=== PATIENT | female | born 1990 | race Caucasian/White ===

== ENCOUNTER 2016-11-21 11:31 | Emergency (ER) | payer OTHER ==
[2016-11-21 12:20] VITALS: BP 115/71
--- NOTE | 2016-11-21 13:11 | UC ---
Skin Complaint HPI - HPI Summary HPI Summary: flu vaccine in left arm yesterday --now concerned because it is red and warm - History of Current Complaint Chief Complaint: UCSkin Time Seen by Provider: 11/21/16 13:01 Stated Complaint: LEFT ARM COMPLAINT Hx Obtained From: Patient Hx Last Menstrual Period: 8 days ago ?: No Onset/Duration: Sudden Onset, Lasting Days - 1 Skin Exposure Onset/Duration: Days Ago - 1 Timing: Constant Onset Severity: Mild Current Severity: Mild Pain Intensity: 3 Pain Scale Used: 0-10 Numeric Location: Discrete - left upper arm Character: Pain, Redness Aggravating Factor(s): Nothing Alleviating Factor(s): Nothing Associated Signs & Symptoms: Positive: Negative - Allergy/Home Medications Allergies/Adverse Reactions: Allergies Allergy/AdvReac Type Severity Reaction Status Date / Time Adhesive Tape Allergy Intermediate Rash Verified 11/21/16 12:20 Latex Allergy Intermediate Rash Verified 11/21/16 12:20 Review of Systems Constitutional: Negative Skin: Negative, Other - 6 cm diameter erythemic are left upper arm Eyes: Negative ENT: Negative Respiratory: Negative Cardiovascular: Negative Gastrointestinal: Negative Genitourinary: Negative Motor: Negative Neurovascular: Negative Musculoskeletal: Negative Neurological: Negative Psychological: Negative Is Patient Immunocompromised?: No All Other Systems Reviewed And Are Negative: Yes PMH/Surg Hx/FS Hx/Imm Hx Previously Healthy: No - chronic back pain - Surgical History Surgical History: Yes Surgery Procedure, Year, and Place: RIGHT FALLOPIAN TUBE AND OVARY REMOVED. SEP 2012 - Family History Known Family History: Positive: None - Social History Occupation: Employed Full-time Lives: With Family Alcohol Use: Occasionally Substance Use Type: Prescribed Substance Use Comment - Amount & Last Used: prescribed through pain mgt Smoking Status (MU): Heavy Every Day Tobacco Smoker Type: Cigarettes Amount Used/How Often: 1/2 PPD Length of Time of Smoking/Using Tobacco: 11 YRS Have You Smoked in the Last Year: Yes Household Exposure Type: Cigarettes Physical Exam Triage Information Reviewed: Yes Appearance: Well-Appearing, No Pain Distress, Well-Nourished Vital Signs: Initial Vital Signs Temp 98.7 F 11/21/16 12:13 Pulse 92 11/21/16 12:13 Resp 20 11/21/16 12:13 BP 115/71 11/21/16 12:13 Vital Signs Reviewed: Yes Eye Exam: Normal Eyes: Positive: Conjunctiva Clear ENT Exam: Normal ENT: Positive: Normal ENT inspection, Hearing grossly normal. Negative: Nasal congestion, Nasal drainage, Trismus, Muffled/hoarse voice Dental Exam: Normal Neck exam: Normal Neck: Positive: Supple, Nontender, No Lymphadenopathy Respiratory Exam: Normal Respiratory: Positive: Chest non-tender, Lungs clear, Normal breath sounds, No respiratory distress, No accessory muscle use Cardiovascular Exam: Normal Cardiovascular: Positive: RRR, Pulses Normal, Brisk Capillary Refill Musculoskeletal Exam: Normal Musculoskeletal: Positive: Strength Intact, ROM Intact, No Edema Neurological Exam: Normal Neurological: Positive: Alert, Muscle Tone Normal Psychological Exam: Normal Skin Exam: Normal Skin: Positive: Other - 6 cm diameter erythemic area left upper arm Course/Dx - Course Course Of Treatment: Ibuprofen heat follow with pcp prn - Differential Diagnoses - Skin Complaint Differential Diagnoses: Abscess, Allergic Reaction, Cellulitis, Contact Dermatitis, Local Allergic Reaction - Diagnoses Provider Diagnoses: Localized reaction to influenza Vaccine left upper arm, nicotine dependent Discharge - Discharge Plan Condition: Stable Disposition: HOME Patient Education Materials: Ibuprofen (By mouth), Influenza Vaccine (ED), Warm Compress or Soak (ED) Forms: *Work Release Referrals: Sherry Swanson MD [Primary Care Provider] - If Needed
== END 2016-11-21 13:20 | disposition home or self-care (01) ==
LOC: UCCORT 11:31
DX: T88.1XXA Other complications following immunization, not elsewhere classified, initial encounter (principal); Y84.8 Other medical procedures as the cause of abnormal reaction of the patient, or of later complication, without mention of misadventure at the time of the procedure; Y92.9 Unspecified place or not applicable; M54.9 Dorsalgia, unspecified; G89.29 Other chronic pain; F17.210 Nicotine dependence, cigarettes, uncomplicated
CPT/HCPCS: 99201; G0463

== ENCOUNTER 2018-03-12 09:01 | Emergency (ER) | payer OTHER ==
[2018-03-12 09:25] VITALS: BP 117/76
--- NOTE | 2018-03-12 10:46 | ED ---
Back Pain - HPI Summary HPI Summary: 27 yr old female with the complaint of low back pain. 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 She felt a pull and a strange sound from her low lumbar spine area. She felt pain radiate into her right anterior thigh. She denies bowel or bladder incontinence. She denies focal weakness or numbness. She has no other complaints. - History of Current Complaint Chief Complaint: UCBackPain Stated Complaint: BACK INJURY - W/C Time Seen by Provider: 03/12/18 09:58 Hx Last Menstrual Period: 02/09/18 Pain Intensity: 4 - Allergies/Home Medications Allergies/Adverse Reactions: Allergies Allergy/AdvReac Type Severity Reaction Status Date / Time Adhesive Tape Allergy Intermediate Rash Verified 03/12/18 09:25 latex Allergy Intermediate Rash Verified 03/12/18 09:25 PMH/Surg Hx/FS Hx/Imm Hx Endocrine/Hematology History: Denies: Hx Diabetes Cardiovascular History: Reports: Hx Hypertension - no meds Denies: Hx Pacemaker/ICD Respiratory History: Reports: Hx Asthma - resolved Musculoskeletal History: Reports: Hx Back Problems Sensory History: Denies: Hx Hearing Aid Psychiatric History: Denies: Hx Panic Disorder - Cancer History Cancer Type, Location and Year: 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 SEP 2012. Cholecystectomy 11/19/17 at [facility] by Dr. Guerra. Infectious Disease History: No Infectious Disease History: Denies: Hx Clostridium Difficile, Hx Hepatitis, Hx Human Immunodeficiency Virus (HIV), Hx of Known/Suspected MRSA, Hx Shingles, Hx Tuberculosis, Hx Known/ Suspected VRE, Hx Known/Suspected VRSA, History Other Infectious Disease, Traveled Outside the in Last 30 Days - Family History Known Family History: Positive: None - Social History Occupation: Employed Full-time Alcohol Use: None Substance Use Type: Reports: None Substance Use Comment - Amount & Last Used: prescribed through pain mgt Smoking Status (MU): Current Every Day Smoker Type: Cigarettes Amount Used/How Often: 1/2 PPD Length of Time of Smoking/Using Tobacco: 11 YRS Have You Smoked in the Last Year: Yes Review of Systems Constitutional: Negative Positive: Other - back pain All Other Systems Reviewed And Are Negative: Yes Physical Exam Triage Information Reviewed: Yes Vital Signs On Initial Exam: Initial Vitals Temp Pulse Resp BP Pulse Ox 98.2 F 94 18 117/76 100 03/12/18 09:22 03/12/18 09:22 03/12/18 09:22 03/12/18 09:22 03/12/18 09:22 Vital Signs Reviewed: Yes Appearance: Positive: Well-Appearing, No Pain Distress Skin: Positive: Warm, Skin Color Reflects Adequate Perfusion Head/Face: Positive: Normal Head/Face Inspection Eyes: Positive: EOMI ENT: Positive: TMs normal Neck: Positive: Supple Respiratory/Lung Sounds: Positive: Clear to Auscultation, Breath Sounds Present Cardiovascular: Positive: RRR. Negative: Murmur Abdomen Description: Negative: Distended Musculoskeletal: Positive: Strength/ROM Intact, Other - back tenderness low lumbar spine, no deformity, no step off. Neurological: Positive: Sensory/Motor Intact, Alert, Oriented to Person Place, Time, CN Intact II-III, Normal Gait Psychiatric: Positive: Normal - [place] Coma Scale Best Eye Response: 4 - Spontaneous Best Motor Response: 6 - Obeys Commands Best Verbal Response: 5 - Oriented Coma Scale Total: 15 Diagnostics - Vital Signs Vital Signs Temp Pulse Resp BP Pulse Ox 03/12/18 09:22 98.2 F 94 18 117/76 100 - Laboratory Lab Statement: Any lab studies that have been ordered have been reviewed, and results considered in the medical decision making process. Back Pain Course/Dx - Course Course Of Treatment: 27 yr old with low back pain. refer to Dr Castro for follow up. - Diagnoses Provider Diagnoses: Back pain Discharge - Sign-Out/Discharge Documenting (check all that apply): Patient Departure All imaging exams completed and their final reports reviewed: Yes - Discharge Plan Condition: Good Disposition: HOME Patient Education Materials: Low Back Strain (ED) Referrals: No Primary Care Phys,NOPCP [Primary Care Provider] - Boni Castro MD [Medical Doctor] - 3 Days - Billing Disposition and Condition Condition: GOOD Disposition: Home
== END 2018-03-12 10:53 | disposition home or self-care (01) ==
LOC: UCCORT 09:01
DX: M54.5 Low back pain (principal); X50.0XXA Overexertion from strenuous movement or load, initial encounter; Y93.F2 Activity, caregiving, lifting; Y92.9 Unspecified place or not applicable; Y99.0 Civilian activity done for income or pay; F17.210 Nicotine dependence, cigarettes, uncomplicated
CPT/HCPCS: 72110; 99211; G0463

== ENCOUNTER 2018-09-19 10:29 | Emergency (ER) | payer BC ==
[2018-09-19 10:58] VITALS: BP 114/74
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
== END 2018-09-19 12:18 | disposition home or self-care (01) ==
LOC: UCCORT 10:29
DX: S39.012A Strain of muscle, fascia and tendon of lower back, initial encounter (principal); W18.40XA Slipping, tripping and stumbling without falling, unspecified, initial encounter; Y92.009 Unspecified place in unspecified non-institutional (private) residence as the place of occurrence of the external cause; M62.830 Muscle spasm of back; F17.210 Nicotine dependence, cigarettes, uncomplicated
CPT/HCPCS: 72100; 99211; G0463